=== PATIENT | male | born 1945 | race Caucasian/White ===

== ENCOUNTER 2025-01-01 17:25 | Emergency (ER) | payer MEDICARE, OTHER ==
[2025-01-01] MEDS ORDERED: Sodium Chloride 0.9% 10 ML Syringe FLUSH PRN (17:36)
[2025-01-01 17:46] LABS: BASOPHILS ABSOLUTE AUTO 0.1 K/mm3 (0.0-0.2); BASOPHILS PERCENT AUTO 0.5 % (0.0-1.0); EOSINOPHILS ABSOLUTE AUTO 0.1 K/mm3 (0.0-0.4); EOSINOPHILS PERCENT AUTO 1.0 % (0.0-6.0); IMMATURE GRAN ABSOLUTE AUTO 0.11 K/mm3 (0.00-0.05); IMMATURE GRAN PERCENT AUTO 0.8 % (0.0-0.4); LYMPHOCYTES ABSOLUTE AUTO 1.6 K/mm3 (1.0-4.8); LYMPHOCYTES PERCENT AUTO 11.9 % (24.0-44.0); MEAN PLATELET VOLUME 9.6 fl (9.4-12.4); MONOCYTES ABSOLUTE AUTO 1.1 K/mm3 (0.0-0.8); MONOCYTES PERCENT AUTO 8.3 % (0.0-8.0); NEUTROPHILS ABSOLUTE AUTO 10.3 K/mm3 (1.8-7.7); NEUTROPHILS PERCENT AUTO 77.5 % (41.0-71.0); NRBC ABSOLUTE 0.00 (0.00-0.02); NRBC PERCENT 0.0 % (0.0-0.2); PLATELET COUNT,PLT 320 K/mm3 (150-400); RED BLOOD CELL COUNT 4.31 M/mm3 (4.52-5.90); WHITE BLOOD CELL COUNT,WBC 13.23 K/mm3 (3.9-11.3)
[2025-01-01 18:18] LABS: A/G RATIO 0.6 (1-2); ALANINE AMINOTRANSFERASE,ALT 22.0 U/L (16-63); ASPARTATE AMNIOTRANSFERASE,AST 22.0 U/L (15-37); BILIRUBIN TOTAL 0.9 mg/dL (0.2-1.0); BLOOD UREA NITROGEN,BUN 21.0 mg/dL (7-18); CARBON DIOXIDE,CO2 25.0 mEq/L (21-32); CHLORIDE,CL 104.0 mEq/L (98-107); CREATININE 1.0 mg/dL (0.7-1.3); EST CRCL DRUG DOSING (CG) 64.84 mL/min; ESTIMATED GFR 77.0 mL/min (>60); GLUCOSE RANDOM 107.0 mg/dL (70-99); POTASSIUM,K 4.0 mEq/L (3.5-5.1); PROTEIN TOTAL,TP 6.9 g/dl (6.4-8.2); SODIUM,NA 138.0 mEq/L (136-145); TROPONIN I HIGH SENSITIVITY 7.0 pg/mL (<=76)
[2025-01-01 18:24] LABS: CREATINE KINASE,CK 47.0 U/L (39-308)
[2025-01-01 22:49] VITALS: BP 133/64; PULSE 103
== END 2025-01-01 22:37 ==
LOC: JD.ED 17:25
DX: R53.1 Weakness (principal); M25.531 Pain in right wrist; M79.641 Pain in right hand; M25.521 Pain in right elbow; M25.552 Pain in left hip; M25.512 Pain in left shoulder; M25.571 Pain in right ankle and joints of right foot; M25.572 Pain in left ankle and joints of left foot; R70.0 Elevated erythrocyte sedimentation rate; R79.82 Elevated C-reactive protein (CRP); I10 Essential (primary) hypertension; Z79.899 Other long term (current) drug therapy; M25.40 Effusion, unspecified joint
CPT/HCPCS: 36415; 70450; 70450-26; 71045; 71045-26; 80053; 82550; 83735; 83880; 84484; 84550; 85025; 85652; 86140; 87040; 93005; 93010; 99284; 99285; J7030